=== PATIENT | female | born 1950 | race Caucasian/White ===

== ENCOUNTER 2017-01-04 19:12 | Emergency (ER) | payer MEDICARE, OTHER ==
[2017-01-04] MEDS ORDERED: LIDOCAINE 4%/TETRACAINE 0.5%/EPI 0.18% 5 ML TOPICAL SOLN TOP ONE (20:30)
[2017-01-04] MEDS ORDERED: LIDOCAINE 1% INJ-PF (10 MG/ML) 30 ML SDV INJ ONE (20:30)
[2017-01-04] MEDS ORDERED: DIPH/PERTUSS(ACELL)/TETANUS VAC/PF 0.5 ML SYR (>=10YO) IM ONE (20:34)
--- NOTE | 2017-01-04 20:36 | ER Document Report ---
ED Wound - General TRAVEL OUTSIDE OF THE [place] IN LAST 30 DAYS: No - General Chief Complaint: Laceration Stated Complaint: NOSE BLEED Time Seen by Provider: 01/04/17 20:02 Notes: Patient is a 66-year-old female that comes emergency department for chief complaint of laceration to her upper lip, she states she opened a cabinet and glass bowl fell out and hit her in the face, multiple items broke, one piece caused a small laceration on her upper lip. She denies loss of consciousness, vomiting, or specific headache (she states her head "feels a little weird"). She is not on anticoagulation except for baby daily aspirin. Her tetanus is not up-to-date within 5 years. (PHILLIP HARDY) - Related Data Allergies/Adverse Reactions: diltiazem Allergy (Verified 01/04/17 19:24) lisinopril Allergy (Verified 01/04/17 19:24) Sulfa (Sulfonamide Antibiotics) Allergy (Verified 01/04/17 19:24) Past Medical History - General Information source: Patient - Social History Smoking Status: Never Smoker Frequency of alcohol use: None Drug Abuse: None Lives with: Family Family History: Reviewed & Not Pertinent Patient has suicidal ideation: No Patient has homicidal ideation: No - Past Medical History Cardiac Medical History: Reports: Hx Coronary Artery Disease, Hx Hypertension Renal/ Medical History: Denies: Hx Peritoneal Dialysis - Immunizations Hx Diphtheria, Pertussis, Tetanus Vaccination: Yes Review of Systems - Review of Systems Constitutional: No symptoms reported EENT: No symptoms reported Cardiovascular: No symptoms reported Respiratory: No symptoms reported Gastrointestinal: No symptoms reported Genitourinary: No symptoms reported Female Genitourinary: No symptoms reported Musculoskeletal: See HPI Skin: See HPI Hematologic/Lymphatic: No symptoms reported Neurological/Psychological: See HPI Physical Exam - Vital signs Interpretation: Normal - General General appearance: Appears well, Alert In distress: None - HEENT Head: Normocephalic, Open wounds - To centimeter open wound, irregular, over the mid upper lip extending down to the tip of the vermilion border; no other signs of injury Eyes: Normal Conjunctiva: Normal Extraocular movements intact: Yes Eyelashes: Normal Pupils: PERRL Ears: Normal External canal: Normal Tympanic membrane: Normal Sinus: Maxillary - Mild maxillary sinus tenderness, no ecchymosis or signs of trauma Nasal: Normal Mouth/Lips: Normal Mucous membranes: Normal Pharynx: Erythema - Erythema with evidence of postnasal drip. No: Tonsillar hypertrophy Neck: Normal - Respiratory Respiratory status: No respiratory distress Chest status: Nontender Breath sounds: Normal Chest palpation: Normal - Cardiovascular Rhythm: Regular Heart sounds: Normal auscultation Murmur: No - Abdominal Inspection: Normal Distension: No distension Bowel sounds: Normal Tenderness: Nontender Organomegaly: No organomegaly - Back Back: Normal, Nontender - Extremities General upper extremity: Normal inspection, Nontender, Normal color, Normal ROM , Normal temperature General lower extremity: Normal inspection, Nontender, Normal color, Normal ROM , Normal temperature, Normal weight bearing. No: Ani's sign - Neurological Neuro grossly intact: Yes Cognition: Normal Orientation: AAOx4 [place] Coma Scale Eye Opening: Spontaneous [place] Coma Scale Verbal: Oriented Mason Coma Scale Motor: Obeys Commands [place] Coma Scale Total: 15 Speech: Normal Motor strength normal: LUE, RUE, LLE, RLE Sensory: Normal - Psychological Associated symptoms: Normal affect, Normal mood - Skin Skin Temperature: Warm Skin Moisture: Dry Skin Color: Normal Course - Re-evaluation Re-evalutation: Neurologically, the patient was awake, alert, and oriented to person, place and time. There were no obvious focal neurologic abnormalities. Exam, she has bilateral maxillary sinus tenderness with postnasal drip and mild pharyngeal erythema on examination, patient states this is not new with the injury. Patient will be covered with amoxicillin, has primary care follow-up Has a laceration over the upper lip, this was repaired, discussed wound care, discussed return precautions. Also discussed head injury precautions although there is not any significant evidence of head injury, patient was mostly inquisitive. Discussed with patient and . They state understanding and agreement (PHILLIP HARDY) - Vital Signs Vital signs: Temp Pulse Resp BP Pulse Ox 98.6 F 69 18 139/85 H 95 01/04/17 22:05 01/04/17 22:05 01/04/17 22:05 01/04/17 22:05 01/04/17 22:05 Procedures - Laceration/Wound Repair Upper lip Wound length (cm): 2 Wound's Depth, Shape: Irregular Laceration pre-procedure: Sterile PPE donned, Sterile drapes applied, Other - Surgical cleanser Anesthetic type: Other - l.e.t. Wound explored: Clean, No foreign body removed Irrigated w/ Saline (mLs): 20 Wound Repaired With: Sutures Suture Size/Type: 6:0, Nylon Number of Sutures: 4 Layer Closure?: No Post-procedure wound care: Sterile dressing applied Post-procedure NV exam normal: Yes Complications: No Discharge - Discharge Clinical Impression: Lip laceration Condition: Stable Disposition: HOME, SELF-CARE Instructions: Tetanus Immunization Given ([facility]) Additional Instructions: The sutures need to come out in 5-7 days. Keep clean, clean gently with soap and water, dab dry, You can apply thin film of antibiotic to the area. Take the amoxicillin as directed to completion for sinus infection and sore throat. Follow head injury precautions listed below. Follow-up with primary care. Return to emergency department for any concerning g symptoms - wound redness, swelling, fever, discolored drainage, etc. Head Injury Precautions At this point, there is no evidence that your head injury is serious. Observation is necessary, however. Take only clear liquids for the first few hours, unless told otherwise by the doctor. If no pain medication was prescribed, you may take acetaminophen according to the directions on the bottle. Do not take any medication that may alter your level of alertness (unless you've discussed it with the doctor first) . Limit activity for the first 24 hours. Bed rest is best. During the first 24 hours, check to see approximately every two to three hours that the patient is easily arousable, responds normally, and can perform common tasks such as walking without difficulty. Contact your doctor or go to the hospital if any of the following things occur: Persistent vomiting, difficulty in arousing the patient, worsening or continued headache, or failure to improve as expected. Head injuries can cause symptoms that persist for a few days or even a few weeks. Prescriptions: Amoxicillin Trihydrate [Amoxil 500 mg Capsule] 500 mg PO TID #30 cap
[2017-01-04 22:07] VITALS: BP 139/85
== END 2017-01-04 22:07 | disposition home or self-care (01) ==
LOC: ER 19:12
PROC: 0CQ0XZZ Repair Upper Lip, External Approach (ICD-10-PCS; principal; 2017-01-04)
DX: S01.511A Laceration without foreign body of lip, initial encounter (principal); W20.8XXA Other cause of strike by thrown, projected or falling object, initial encounter; Y92.000 Kitchen of unspecified non-institutional (private) residence as the place of occurrence of the external cause; I10 Essential (primary) hypertension; Z79.82 Long term (current) use of aspirin; Z23 Encounter for immunization; Z88.2 Allergy status to sulfonamides
CPT/HCPCS: 99282; 90471; 90715; 12011; J3490

== ENCOUNTER 2017-04-14 07:25 | Day surgery (SDC) | payer MEDICARE ==
[~2017-04-14 07:25] MED LIST: KETOROLAC TROMETHAMINE 0.45% 4 DROP/0.4 ML DROPERETTE OS PRN
[2017-04-14] MEDS: TROPICAMIDE 1% OPH SOLN 3 ML OS PRN ×3 (07:52→08:12)
[2017-04-14] MEDS: BESIFLOXACIN HCL 0.6% OPH SUSP 5 ML BOTTLE OS PRN ×3 (07:52→08:50)
[2017-04-14] MEDS: CYCLOPENTOLATE 0.2%/PHENYLEPHRINE 1% OPH SOLN 2 ML OS PRN ×3 (07:52→08:12)
[2017-04-14] MEDS: TETRACAINE HCL 0.5% OPH SOLN 2 ML OS PRN ×3 (07:53→08:33)
[2017-04-14] MEDS ORDERED: EPINEPHRINE INJ/PF 1 MG/1 ML AMPULE ONE (07:59)
[2017-04-14] MEDS ORDERED: CHONDR SU A NA/HYALUR INTRAOC KIT (SURGICARE) ONE (08:00)
[2017-04-14] MEDS ORDERED: LIDOCAINE 1% INJ-PF (10 MG/ML) 30 ML SDV ONE (08:00)
[2017-04-14] MEDS ORDERED: FENTANYL CITRATE INJ/PF 100 MCG/2 ML AMPUL ONE (08:11)
[2017-04-14] MEDS ORDERED: MIDAZOLAM 2 MG/2 ML INJ ONE (08:11)
--- NOTE | 2017-04-14 18:13 | DISCHARGE SUMMARY E ---
Discharge Summary NAME: CARSON HANNA : 1950 AGE: 66Y ADMITTED: 04/14/2017 DISCHARGED: 04/14/2017 REASON FOR ADMISSION: This is a 66-year-old patient who underwent cataract extraction of the left eye. DIAGNOSIS: Cataract, left eye. HISTORY AND HOSPITAL COURSE: She underwent surgery because she was having reading small print. She should be on a regular diet. No bending at her waist. No heavy lifting. She should use her Besivance, Ilevro, and Durezol at 3:00 p.m. and 8:00 p.m. and sleep with a rigid shield, and I will see her for a 1-day postoperative tomorrow. DICTATING PHYSICIAN: DARCI GLYNN M.D. [id number] PHY#: [id number] ID: [id number] JOB#: [id number] ACCT: [id number] cc:DARCI GLYNN M.D. >
--- NOTE | 2017-04-14 18:13 | [facility] OPERATIVE REPORT E ---
[facility] Operative Report NAME: CARSON HANNA AGE: 66Y DATE OF SURGERY: 04/14/2017 ROOM: PREOPERATIVE DIAGNOSIS: CATARACT, LEFT EYE. POSTOPERATIVE DIAGNOSIS: CATARACT, LEFT EYE. OPERATION: Cataract extraction with intraocular lens implant of the left eye. SURGEON: DARCI GLYNN M.D. ANESTHESIA: Topical. PROCEDURE: After obtaining appropriate consent, the patient's left eye was prepped and draped in sterile fashion as well as the surgeon in a sterile manner and cataract surgery was started. First a paracentesis blade was used to make a small side-port incision. Viscoelastic was used to inflate the anterior chamber. Next a 2.4 mm incision was made with the paracentesis blade. A continuous capsulorrhexis incision was made using a cystotome and Utrata forceps. Following this hydrodissection was carried out to make the lens fully loose and mobile and it was rotated 90 degrees. Following this, a zuxzzu-[id number]-smipbqb technique was used to phacoemulsify the lens with a CDE of 7.11. The remaining cortex was removed with irrigation/aspiration. Provisc was instilled into the capsular bag to inflate the bag. A SN60WF, 23.0 diopter lens was placed. The remaining viscoelastic material was removed with irrigation/aspiration. Following this, a 10-0 nylon suture was used to close the incision and it was found to be watertight. Vigamox was instilled in the eye and a protective shield was placed over the eye. The patient returned to the postoperative recovery in stable condition. DICTATING PHYSICIAN: DARCI GLYNN M.D. [id number] PHY#: [id number] ID: [id number] JOB#: [id number] ACCT: [id number] cc:DARCI GLYNN M.D. >
== END 2017-04-14 09:36 | disposition home or self-care (01) ==
LOC: SC 07:25
PROVIDERS: ATTEND Internal Medicine
PROC: 08RK3JZ Replacement of Left Lens with Synthetic Substitute, Percutaneous Approach (ICD-10-PCS; principal; 2017-04-14 08:30)
DX: H25.12 Age-related nuclear cataract, left eye (principal); E11.9 Type 2 diabetes mellitus without complications; I10 Essential (primary) hypertension; E78.00 Pure hypercholesterolemia, unspecified; J45.909 Unspecified asthma, uncomplicated; M19.90 Unspecified osteoarthritis, unspecified site; D07.0 Carcinoma in situ of endometrium; E66.9 Obesity, unspecified; E03.9 Hypothyroidism, unspecified; M10.00 Idiopathic gout, unspecified site; K21.9 Gastro-esophageal reflux disease without esophagitis; Z79.899 Other long term (current) drug therapy; Z79.82 Long term (current) use of aspirin; Z88.8 Allergy status to other drugs, medicaments and biological substances; Z79.51 Long term (current) use of inhaled steroids; Z79.891 Long term (current) use of opiate analgesic; Z79.84 Long term (current) use of oral hypoglycemic drugs; Z68.39 Body mass index [BMI] 39.0-39.9, adult
CPT/HCPCS: 66984; 82962; V2632; J2250; J3490 ×2; A9270; J0171; J3010; 142

== ENCOUNTER 2018-08-29 06:00 | Day surgery (SDC) | payer MEDICARE ==
[2018-08-22 09:45] LABS: ABSOLUTE BASOPHILS # (AUTO) 0.1 10^3/uL (0.0-0.2); ABSOLUTE EOSINOPHILS # (AUTO) 0.3 10^3/uL (0.0-0.6); ABSOLUTE LYMPHOCYTES (AUTO) 2.9 10^3/uL (0.5-4.7); ABSOLUTE MONOCYTES (AUTO) 0.8 10^3/uL (0.1-1.4); ABSOLUTE NEUT (AUTO) 6.7 10^3/uL (1.7-8.2); BASOPHILS % (AUTO) 0.9 % (0-2); EOSINOPHILS % (AUTO) 2.9 % (0-6); HEMATOCRIT 43.2 % (36.0-47.0); HEMOGLOBIN 14.8 g/dL (12.0-15.5); LYMPHOCYTES % (AUTO) 26.9 % (13-45); MEAN CORPUSCULAR HEMOGLOBIN 32.2 pg (27.0-33.4); MEAN CORPUSCULAR HGB CONC 34.2 g/dL (32.0-36.0); MEAN CORPUSCULAR VOLUME 94 fl (80-97); MONOCYTES % (AUTO) 7.8 % (3-13); PLATELET COUNT 325 10^3/uL (150-450); RED CELL DISTRIBUTION WIDTH 14.4 % (11.5-14.0); SEGMENTED NEUTROPHILS % (AUTO) 61.5 % (42-78); TOTAL CELLS COUNTED % (AUTO) 100 %; WHITE BLOOD COUNT 10.9 10^3/uL (4.0-10.5)
[2018-08-22 09:49] LABS: INTERNATIONAL RATION (INR) 0.88; PARTIAL THROMBOPLASTIN TIME 26.9 SEC (23.5-35.8); PROTHROMBIN TIME 12.4 SEC (11.4-15.4)
[2018-08-22 09:52] LABS: APPEARANCE,URINE SLIGHTLY-CLOUDY; BILIRUBIN,URINE NEGATIVE (NEGATIVE); COLOR,URINE YELLOW; GLUCOSE, URINE NEGATIVE (NEGATIVE); KETONES,URINE NEGATIVE (NEGATIVE); LEUKOCYTE ESTERASE,URINE SMALL (NEGATIVE); NITRITE,URINE NEGATIVE (NEGATIVE); PROTEIN,URINE NEGATIVE (NEGATIVE); URINE SPECIFIC GRAVITY 1.019; UROBILINOGEN,URINE NEGATIVE mg/dL (<2.0)
--- NOTE | 2018-08-22 15:59 | EKG REPORT ---
SEVERITY:- BORDERLINE ECG - SINUS RHYTHM BORDERLINE T ABNORMALITIES, ANTERIOR LEADS : Confirmed by: Panchito Khan MD 22-Aug-2018 15:58:04
[~2018-08-29 06:00] MED LIST changes: +CEFAZOLIN 1 GM/D5W RTU 1 GM/50 ML RTUPB IV ONE; +CEFAZOLIN 1 GM/D5W RTU 1 GM/50 ML RTUPB IV PRN; -KETOROLAC TROMETHAMINE 0.45% 4 DROP/0.4 ML DROPERETTE OS PRN; +LACTATED RINGERS 1000 ML IV PRN; +LIDOCAINE 0.5% INJ-PF (5 MG/ML) 50 ML SDV SUBCUT PRN
[2018-08-29] MEDS ORDERED: FENTANYL CITRATE INJ/PF 100 MCG/2 ML AMPUL ONE (06:52)
[2018-08-29] MEDS ORDERED: LIDOCAINE 2% INJ-PF (20 MG/ML) 10 ML AMPUL ONE (06:52)
[2018-08-29] MEDS ORDERED: MIDAZOLAM 2 MG/2 ML INJ ONE (06:52)
[2018-08-29] MEDS ORDERED: EPHEDRINE SULFATE INJ 50 MG/1 ML AMPULE ONE (06:53)
[2018-08-29] MEDS ORDERED: ONDANSETRON HCL INJ/PF 4 MG/2 ML SDV ONE (06:53)
[2018-08-29] MEDS ORDERED: ACETAMINOPHEN 1,000 MG/100 ML RTUPB IV ONE (06:54)
[2018-08-29] MEDS ORDERED: PROPOFOL INJ 200 MG/20 ML VIAL IV ONE (06:54)
[2018-08-29] MEDS ORDERED: BUPIVACAINE HCL 0.5%-EPI 1:200000 INJ/PF 30 ML VIAL ONE (07:28)
[2018-08-29] MEDS ORDERED: FAMOTIDINE INJ/PF 20 MG/2 ML SDV IV ONE (07:28)
[2018-08-29] MEDS ORDERED: LIDOCAINE 1% INJ-PF (10 MG/ML) 30 ML SDV ONE (07:28)
[2018-08-29] MEDS ORDERED: TRIAMCINOLONE ACETONIDE INJ 40 MG/1 ML VIAL ONE (07:28)
[2018-08-29] MEDS ORDERED: METOCLOPRAMIDE HCL INJ/PF 10 MG/2 ML SDV ONE (07:34)
[2018-08-29] MEDS ORDERED: FENTANYL CITRATE INJ/PF 100 MCG/2 ML AMPUL IV PRN ×3 (08:19)
[2018-08-29] MEDS ORDERED: MORPHINE SULFATE 10 MG/ML INJ IV PRN (08:19)
[2018-08-29] MEDS ORDERED: MEPERIDINE HCL/PF INJ 25 MG/1 ML DISP.SYRIN IV PRN (08:19)
[2018-08-29] MEDS ORDERED: DIPHENHYDRAMINE HCL 50 MG/ML VIAL IV PRN (08:19)
[2018-08-29] MEDS ORDERED: PROMETHAZINE HCL INJ 25 MG/1 ML VIAL IV PRN ×2 (08:19)
[2018-08-29] MEDS ORDERED: OXYCODONE-ACETAMINOPHEN 5-325 MG TABLET PO PRN (09:11)
--- NOTE | 2018-08-29 10:43 | OPERATIVE REPORT E ---
Operative Report NAME: CARSON HANNA : 1950 AGE: 68Y DATE OF SURGERY: 08/29/2018 ROOM: PREOPERATIVE DIAGNOSIS: LUMBAR SPINAL STENOSIS WITH NEUROGENIC CLAUDICATION AT THE L3-4 LEVEL. POSTOPERATIVE DIAGNOSIS: LUMBAR SPINAL STENOSIS WITH NEUROGENIC CLAUDICATION AT THE L3-4 LEVEL. OPERATION: Minimally invasive lumbar decompression under fluoroscopic guidance with epidurography and postprocedural epidural steroid injection at the L3-4 level using bilateral approach. SURGEON: TIFFANI HARPER M.D. ANESTHESIA: MAC/local INDICATIONS: Failed treated conservatively without outpatient epidural injections and history consistent with neurogenic claudication and central lumbar spinal stenosis at the L3-4 level with consistent imaging. TISSUE REMOVED OR ALTERED: Lumbar epidural ligamentum flavum and lamina at the L3-4 level. PROCEDURE: After obtaining informed consent, advising patient of the risks and benefits, including serious neurological injury, bleeding, and infection, failure to obtain pain relief, nerve injury, paralysis, allergic reaction and , she was taken to the operating room and placed comfortably in the prone position. Comfort was assessed visually and verbally. MAC anesthesia was administered. She was then prepped with chlorhexidine over the thoracic, lumbar, and sacral spine regions. After appropriate drying time, she was draped. Fluoroscopy was utilized to evaluate the lumbar spine and correlate with MRI imaging. The L3-4 level was readily identified. Skin at the midline was anesthetized with 1% lidocaine at that level in a central location. An epidural needle, 18-gauge, was advanced under fluoroscopic guidance into the epidural space without difficulty. Epidurography was performed and demonstrated limited spread below the 3-4 interspace. Landmarks were identified on the skin and marked with a skin marker. Over the sacral ala at those pedicles at S1, skin *------* were placed in a paramedian location and the subcutaneous and periosteal tissues were anesthetized down to the L4 lamina. Small incisions were made at the selected entrance sites. Beginning on the left side, the trocar was advanced under fluoroscopic guidance to touchdown at the lamina of the L4 on the left in a slight paramedian location. Imaging was confirmed in AP and oblique views. The *------* rongeur was then utilized to remove ligament and bone. This was quite successful at the L3 level as well as reversed at the L4 level. The tissue sculptor was then utilized. Epidurography was performed multiple times demonstrating continued improvement in spread. The instrumentation was then removed and replaced on the right side using the same technique. Once completed on the right side, having a bilateral approach, further epidurography was performed, demonstrating good spread of contrast at this level and improvement below the L4 level. Decision was made to complete the procedure with the administration of Depo-Medrol epidurally at the L3-4 level through the epidural needle. A total of 160 mg were administered. It should be noted that a total of 16 mL of Omnipaque 180 was also utilized during the procedure. Once all instrumentation was removed, the region was cleansed, sterile dressings were applied and patient was taken to the PACU for further postoperative care and monitoring. DICTATING PHYSICIAN: TIFFANI HARPER M.D. [id number] PHY#: [id number] ID: [id number] JOB#: [id number] ACCT: [id number] cc:TIFFANI HARPER M.D. >
--- NOTE | 2018-08-29 11:52 | RADIOLOGY REPORT (SQ) ---
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 FLUOROSCOPY TIME: 4.4 minutes 20 images saved to PACS. TECHNIQUE: Intra-operative images acquired during surgical procedure to evaluate progress. NUMBER OF IMAGES: 20 LIMITATIONS: None. FINDINGS: Intraoperative fluoroscopic images obtained to evaluate progress. Please see operative re port for description of procedure. IMPRESSION: IMAGE(S) OBTAINED DURING PROCEDURE. COMMENT: Quality ID 145: Final reports for procedures using fluoroscopy that document radiation exp osure indices, or exposure time and number of fluorographic images (if radiation exposure indices are not available) Please consult full operative report of the attending physician for description of the procedure. TECHNICAL DOCUMENTATION: JOB ID: [id number] [employer]- All Rights Reserved Reading location - IP/workstation name: [email or web address]
--- NOTE | 2018-08-29 12:08 | RADIOLOGY REPORT (SQ) ---
EXAM DESCRIPTION: NO CHG FLUORO COMPLETED DATE/TIME: 08/29/2018 11:32 am REASON FOR STUDY: MINIMALLY INVASIVE LUMBAR DECOMRESSION ASST WITH FLUORO IN OR M48.062 SPINAL STEN OSIS, LUMBAR REGION WITH NEUROGENIC EDWARDO Z79.01 [facility] (CURRENT) USE OF ANTICOAGULANTS COMPARISON: Same day images FLUOROSCOPY TIME: 4.4 minutes of fluoroscopy time 20 images saved to PACS. TECHNIQUE: Intra-operative images acquired during surgical procedure to evaluate progress. NUMBER OF IMAGES: 20 LIMITATIONS: None. FINDINGS: Intraoperative fluoroscopic images obtained to evaluate progress. Please see operative re port for detailed description of procedure. IMPRESSION: IMAGE(S) OBTAINED DURING PROCEDURE. COMMENT: Quality ID 145: Final reports for procedures using fluoroscopy that document radiation exp osure indices, or exposure time and number of fluorographic images (if radiation exposure indices are not available) Please consult full operative report of the attending physician for description of the procedure. TECHNICAL DOCUMENTATION: JOB ID: [id number] [employer]- All Rights Reserved Reading location - IP/workstation name: [email or web address]
[2018-08-29 13:28] VITALS: BP 114/70
== END 2018-08-29 11:15 | disposition home or self-care (01) ==
LOC: OROUT 06:00
PROVIDERS: ATTEND Pain Medicine Interventional Pain Medicine
DX: M48.062 Spinal stenosis, lumbar region with neurogenic claudication (principal); Z00.6 Encounter for examination for normal comparison and control in clinical research program; I10 Essential (primary) hypertension; E11.9 Type 2 diabetes mellitus without complications; M54.5 Low back pain; M47.816 Spondylosis without myelopathy or radiculopathy, lumbar region; M54.17 Radiculopathy, lumbosacral region; M47.9 Spondylosis, unspecified; M46.1 Sacroiliitis, not elsewhere classified; M51.37 Other intervertebral disc degeneration, lumbosacral region; G89.4 Chronic pain syndrome; M48.07 Spinal stenosis, lumbosacral region; M62.9 Disorder of muscle, unspecified; M70.61 Trochanteric bursitis, right hip; M70.62 Trochanteric bursitis, left hip; F17.210 Nicotine dependence, cigarettes, uncomplicated; Z79.01 Long term (current) use of anticoagulants; Z79.82 Long term (current) use of aspirin; Z79.899 Other long term (current) drug therapy; Z79.84 Long term (current) use of oral hypoglycemic drugs; Z79.1 Long term (current) use of non-steroidal anti-inflammatories (NSAID)
CPT/HCPCS: 93005; 36415 ×2; 84132; 85025; 85610; 85730; 81001; 72100; 93010; 0275T; Q9966; J2250; J3490 ×4; J0690; J3010; J2765; J2405; J2704; S0028; J0131; 630

== ENCOUNTER 2019-08-28 18:06 | Emergency (ER) | payer MEDICARE ==
[2019-08-28 19:00] VITALS: BP 170/94
--- NOTE | 2019-08-28 19:23 | ER Document Report ---
ED Medical Screen (RME) - General Chief Complaint: Leg Pain Stated Complaint: LEG PAIN Time Seen by Provider: 08/28/19 19:14 Primary Care Provider: VONNIE HARGROVE FNP-C [Primary Care Provider] - Follow up as needed Mode of Arrival: Ambulatory Information source: Patient Notes: 69-year-old female presented to ED for complaint of pain to the right posterior thigh and behind the knee. She went to [place] urgent care they sent her over for venous Doppler the venous Doppler states that she has a complete thrombosis of the greater saphenous vein which is a superficial vein. She states that the venous Doppler tech called the [facility] and they told her to come to the emergency room for blood work to make sure there was nothing else going on with the redness and inflammation to the vein. I have spoken with Dr. lara who states that warm compresses for the blood clot is appropriate treatment but since the [facility] was requesting blood work we will get blood work also. I have greeted and performed a rapid initial assessment of this patient. A comprehensive ED assessment and evaluation of the patient, analysis of test results and completion of medical decision making process will be conducted by an additional ED providers. TRAVEL OUTSIDE OF THE [place] IN LAST 30 DAYS: No - Related Data Allergies/Adverse Reactions: lisinopril Allergy (Severe, Verified 08/28/19 19:11) ASTHMA TYPE REACTION diltiazem Allergy (Intermediate, Verified 08/28/19 19:11) MEAGAN CARDIA Sulfa (Sulfonamide Antibiotics) Allergy (Intermediate, Verified 08/28/19 19:11) RASH Past Medical History - Past Medical History Cardiac Medical History: Reports: Hx Hypertension Denies: Hx Coronary Artery Disease, Hx Heart Attack Pulmonary Medical History: Reports: Hx Asthma - MILD, Hx Bronchitis, Hx COPD - MILD Denies: Hx Pneumonia Neurological Medical History: Denies: Hx Cerebrovascular Accident, Hx Seizures Renal/ Medical History: Denies: Hx Peritoneal Dialysis GI Medical History: Denies: Hx Hepatitis, Hx Hiatal Hernia, Hx Ulcer Musculoskeltal Medical History: Reports Hx Arthritis - GENERALIZED Infectious Medical History: Denies: Hx Hepatitis Past Surgical History: Reports: Hx Hysterectomy. Denies: Hx Mastectomy, Hx Open Heart Surgery, Hx Pacemaker - Immunizations Hx Diphtheria, Pertussis, Tetanus Vaccination: Yes Physical Exam - Vital signs Vitals: Temp Pulse Resp BP Pulse Ox 98.1 F 72 16 170/94 H 94 08/28/19 18:59 08/28/19 18:59 08/28/19 18:59 08/28/19 18:59 08/28/19 18:59 Course - Vital Signs Vital signs: Temp Pulse Resp BP Pulse Ox 98.1 F 72 16 170/94 H 94 08/28/19 18:59 08/28/19 18:59 08/28/19 18:59 08/28/19 18:59 08/28/19 18:59 Doctor's Discharge - Discharge Referrals: VONNIE HARGROVE, [employer] [Primary Care Provider] - Follow up as needed
[2019-08-28 20:57] LABS: ABSOLUTE BASOPHILS # (AUTO) 0.1 10^3/uL (0.0-0.2); ABSOLUTE EOSINOPHILS # (AUTO) 0.3 10^3/uL (0.0-0.6); ABSOLUTE LYMPHOCYTES (AUTO) 2.4 10^3/uL (0.5-4.7); ABSOLUTE MONOCYTES (AUTO) 0.8 10^3/uL (0.1-1.4); BASOPHILS % (AUTO) 0.6 % (0-2); EOSINOPHILS % (AUTO) 2.5 % (0-6); HEMATOCRIT 42.6 % (36.0-47.0); HEMOGLOBIN 14.5 g/dL (12.0-15.5); LYMPHOCYTES % (AUTO) 22.8 % (13-45); MEAN CORPUSCULAR HEMOGLOBIN 32.8 pg (27.0-33.4); MEAN CORPUSCULAR HGB CONC 33.9 g/dL (32.0-36.0); MEAN CORPUSCULAR VOLUME 97 fl (80-97); MONOCYTES % (AUTO) 7.8 % (3-13); PLATELET COUNT 193 10^3/uL (150-450); RED BLOOD COUNT 4.41 10^6/uL (3.72-5.28); RED CELL DISTRIBUTION WIDTH 14.9 % (11.5-14.0); SEGMENTED NEUTROPHILS % (AUTO) 66.3 % (42-78); TOTAL CELLS COUNTED % (AUTO) 100 %; WHITE BLOOD COUNT 10.6 10^3/uL (4.0-10.5)
[2019-08-28 21:11] LABS: ALKALINE PHOSPHATASE 78 U/L (38-126); ANION GAP 11 (5-19); ASPARTATE AMINO TRANSFERASE 18 U/L (14-36); BILIRUBIN,DIRECT 0.3 mg/dL (0.0-0.4); BILIRUBIN,TOTAL 0.5 mg/dL (0.2-1.3); BLOOD UREA NITROGEN 19 mg/dL (7-20); CALCIUM 9.9 mg/dL (8.4-10.2); CARBON DIOXIDE 23 mmol/L (22-30); CHLORIDE 103 mmol/L (98-107); GLUCOSE 98 mg/dL (75-110); POTASSIUM 4.2 mmol/L (3.6-5.0); TOTAL PROTEIN 7.1 g/dL (6.3-8.2)
[2019-08-28 21:15] LABS: INTERNATIONAL RATION (INR) 0.92; PROTHROMBIN TIME 12.4 SEC (11.4-15.4)
[2019-08-28 21:16] LABS: PARTIAL THROMBOPLASTIN TIME 25.2 SEC (23.5-35.8)
== END 2019-08-29 02:27 | disposition left against medical advice (07) ==
LOC: ER 18:06
DX: I82.819 Embolism and thrombosis of superficial veins of unspecified lower extremity (principal); M79.651 Pain in right thigh; I10 Essential (primary) hypertension; J44.9 Chronic obstructive pulmonary disease, unspecified; Z88.8 Allergy status to other drugs, medicaments and biological substances; Z88.2 Allergy status to sulfonamides; Z53.20 Procedure and treatment not carried out because of patient's decision for unspecified reasons
CPT/HCPCS: 36415; 80053; 85025; 85610; 85730; 93971; 99281

== ENCOUNTER → 2019-08-28 | Outpatient (CLI) | payer MEDICARE ==
--- NOTE | 2019-08-28 18:28 | VASCULAR PRELIM REPORT ---
Provider Note Provider Note: Negative for lower extremity DVT. There is complete thrombosis of the right greater Saphenous vein. This is compatable with a venous ablation proceduere.
--- NOTE | 2019-08-29 08:27 | XCELERA REPORT ---
[address] [place] [facility] [address] Lower Extremity Venous Evaluation Procedure: Color flow and duplex imaging of the veins of the right lower extremity as well as the left Common Femoral vein. Right Sided Venous Evaluation Non compressible, enlarged veins with no Colour flow in the Greater Saphenous, up to but not beyond the Sapheno Femoral junction. Otherwise normal vessel filling wall to wall, compression and augmentation as well as Colour flow down to the infrageniculate veins. Interpretation Summary No duplex evidence of DVT or obstruction in the right lower extremity nor in the left Common Femoral vein. Extensive phlebitis, in the Greater Saphenous vein, on the right. This may be compatible with superficial vein ablation . Name: CARSON HANNA Age: 69 yrs Gender: Female : 1950 Patient Status: Outpatient Patient Location: Study Date: 08/28/2019 05:22 PM Reason For Study: RLE SWELLING Ordering Physician: VONNIE HARGROVE Performed By: Bri Garg : VONNIE HARGROVE > Steve Mayfield
== END ==
LOC: SP 16:58
PROVIDERS: ATTEND Nurse Practitioner Family
DX: I80.01 Phlebitis and thrombophlebitis of superficial vessels of right lower extremity (principal); M79.89 Other specified soft tissue disorders
CPT/HCPCS: 93971